=== PATIENT | male | born 1995 | race Caucasian/White ===

== ENCOUNTER 2017-03-28 16:12 | Emergency (ER) | payer BC ==
[~2017-03-28] VITALS: Ht 182.9 cm; Wt 86.2 kg
[2017-03-28] MEDS ORDERED: ZYRTEC10 M5 PO (16:13)
[2017-03-28 17:18] VITALS: BP 116/73
== END 2017-03-28 17:20 | disposition home or self-care (01) ==
LOC: ER 16:12
DX: T78.40XA Allergy, unspecified, initial encounter (principal); Z91.010 Allergy to peanuts; X58.XXXA Exposure to other specified factors, initial encounter